=== PATIENT | female | born 1940 | race Caucasian/White ===

== ENCOUNTER 2016-04-27 11:40 | Outpatient (CLI) | payer OTHER ==
[~2016-04-27 11:40] MED LIST: ACETAMINOPHEN325 MG PO; ALBUTEROL HFA60 DOSE IN; ALPRAZOLAM0.5 MG PO; AMBIEN5 MG PO; AMITRIPTYLINE H25 MG PO; ASPIRIN EC LOW81 MG PO; ATORVASTATIN CA40 MG PO; BUPROPION HCL150 M3 PO; CICLOPIROX 0.77% TOP; CIPRO500 MG PO; CITALOPRAM HYDR20 MG PO; CLEOCIN300 MG PO; COLACE EQUIVALENT PO; COMBIVENT IN; COSOPT OP; COSOPT1 ML; CRANBERRY PO; CRANBERRY450 MG PO; DULERA1 AE1 IN; FENTANYL25 MCG/HR TOP; FERROUS SULFAT325 M1 PO; FUROSEMIDE20 MG PO; GABAPENTIN600 MG PO; GLUCOPHAGE500 MG PO; HYDROCHLOROTHIA25 MG PO; IBUPROFEN200 M1 PO; IPRATROPIUM BR0.02 % IN; IPRATROPIUM BROMIDE/ IN; LEVOFLOXACIN750 MG PO; LEVOTHYROXINE75 MCG PO; LOPROX TOP; LORAZEPAM1 MG PO; LUMIGAN0.01 % OP; METFORMIN HCL500 MG PO; MULTIVITAMIN1 TAB PO; NEURONTIN300 MG PO; NICOTINE T7 MG/24 HR TOP; OCUVITE PO; OXAYDO5 MG PO; OXYCODONE/ACETA1 TA1 PO; PERCOCET1 TA1 PO; PILOCARPINE HYDR5 MG PO; POTASSIUM CHLO10 ME2 PO; QUINAPRIL HCL20 MG PO; RANITIDINE HCL150 MG PO; TEMAZEPAM15 MG PO; TIROSINT75 MCG PO; TRAZODONE HCL50 MG PO; VICODIN EQUIVAL1 TAB PO; VITAMIN B-121000 MC1 SL; VITAMIN B121000 CR SL; VITAMIN C500 M1 PO; VITAMIN D-31000 UNIT PO; ZINC SULFATE220 MG PO; ZOLOFT25 MG PO
--- NOTE | 2016-04-27 13:32 | DIAGNOSTIC IMAGING REPORT ---
PROCEDURE: XR FOOT 3 VIEWS - LEFT INDICATION: LOOKING AT GREAT TOE FOR POSSIBLE SURGICAL INTERVENTION TECHNIQUE: Three views. COMPARISON: None. FINDINGS: Osteoarthritis first MTP joint and interphalangeal joint. A screw through the proximal first metatarsal to screws the distal tibia IMPRESSION: 1. 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
== END 2016-04-27 23:00 ==
LOC: XR SRH 11:40
DX: M19.072 Primary osteoarthritis, left ankle and foot (principal)

== ENCOUNTER 2016-07-06 09:52 | Outpatient (CLI) | payer OTHER ==
--- NOTE | 2016-07-06 12:16 | DIAGNOSTIC IMAGING REPORT ---
PROCEDURE: CT THORAX WITH CONTRAST INDICATION: LUNG CA, follow-up TECHNIQUE: 100 ml of Isovue 300 was injected intravenously and axial images were obtained of the chest with coronal and sagittal reformations. COMPARISON: None. FINDINGS: Interval progression of right perihilar soft tissue density/consolidation, primarily peripherally. 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 Stable pretracheal lymph nodes. No new adenopathy or effusion. Moderate atherosclerosis of the aorta. Coronary atherosclerosis. Heart size is normal. Interval removal of left subclavian Port-A-Cath. Multiple small gallstones present. Stable 10 cm fat filled midline supraumbilical hernia. Moderate degenerative changes of the spine. IMPRESSION: 1. Interval progression of right perihilar soft tissue mass primarily peripherally suggestive of increasing atelectasis but concomitant tumor recurrence is also a consideration. Recommend PET scan. 3. Stable medial lingular post radiation changes 3. Left Port-A-Cath removed 4. Cholelithiasis 5. Stable fat filled midline supraumbilical ventral hernia
== END 2016-07-06 23:00 ==
LOC: CT SRH 09:52 → LAB SRH 09:52 → CT SRH 11:00
DX: C34.90 Malignant neoplasm of unspecified part of unspecified bronchus or lung (principal); R91.8 Other nonspecific abnormal finding of lung field
CPT/HCPCS: 90074; 90100; 91282; 91286; 92668; 92670; 92680; 95059